=== PATIENT | male | born 1970 | race Two or more races ===

== ENCOUNTER 2024-03-22 13:18 | Emergency (ER) | payer BC ==
[2024-03-22 14:00] LABS: BASOPHILS ABSOLUTE AUTO 0.01 K/uL (0.00-0.20); BASOPHILS PERCENT AUTO 0.1 % (0.0-2.0); HEMATOCRIT 40.7 % (39.0-49.0); HEMOGLOBIN 14.2 g/dL (13.1-16.8); LYMPHOCYTES ABSOLUTE AUTO 1.16 K/uL (0.50-3.50); LYMPHOCYTES PERCENT AUTO 11.2 % (10.0-50.0); MEAN CORPUSCULAR HEMOGLOBIN 31.1 pg (28.2-33.3); MEAN CORPUSCULAR HGB CONC 34.9 g/dL (31.7-36.0); MEAN CORPUSCULAR VOLUME 89.1 fL (84.0-98.0); MONOCYTES ABSOLUTE AUTO 0.35 K/uL (0.00-1.00); MONOCYTES PERCENT AUTO 3.4 % (2.0-14.0); NEUTROPHILS ABSOLUTE AUTO 8.83 K/uL (1.40-7.00); NEUTROPHILS PERCENT AUTO 85.3 % (45.0-80.0); PLATELET COUNT,PLT 326 K/uL (150-350); RED BLOOD CELL COUNT 4.57 M/uL (4.33-5.41); RED CELL DISTRIBUTION WIDTH 13.2 % (11.2-14.1); WHITE BLOOD CELL COUNT,WBC 10.4 K/uL (4.0-10.2)
[2024-03-22] MEDS ORDERED: Naloxone 0.4 MG/ML SDV IVPUSH PRN (14:03)
[2024-03-22] MEDS: Sodium Chloride 0.9% 1,000 ML IV ONE (14:17)
[2024-03-22] MEDS: Ondansetron 4 MG/2 ML SDV IVPUSH ONE (14:18)
[2024-03-22] MEDS: fentaNYL 50 MCG/ML SDV IVPUSH ONE (14:22)
[2024-03-22 14:25] LABS: SEDIMENTATION RATE AUTO 6 mm/hr (0-20)
[2024-03-22 14:36] LABS: ALANINE AMINOTRANSFERASE,ALT 24 U/L (12-78); ALBUMIN 4.2 g/dL (3.4-5.0); ALKALINE PHOSPHATASE 73 IU/L (46-116); ANION GAP 10.5 meq/L (7-15); ASPARTATE AMNIOTRANSFERASE,AST 16 U/L (15-37); BILIRUBIN TOTAL 0.5 mg/dL (0.2-1.0); BLOOD UREA NITROGEN,BUN 14 mg/dL (7-18); CARBON DIOXIDE,CO2 26.5 mmol/L (21.0-32.0); CHLORIDE,CL 104 mmol/L (98-107); CREATININE 0.78 mg/dL (0.51-1.17); ESTIMATED GFR 108 mL/min (>=60); GLUCOSE RANDOM 111 mg/dL (70-99); MAGNESIUM 1.8 mg/dL (1.8-2.4); POTASSIUM,K 3.5 mmol/L (3.5-5.1); PROTEIN TOTAL,TP 7.7 g/dL (6.4-8.2); SODIUM,NA 141 mmol/L (136-145)
[2024-03-22] MEDS: levETIRAcetam 500 MG/5 ML SDV IVPUSH ONE (14:49)
== END 2024-03-22 15:38 ==
LOC: LL.ED 13:18
DX: S06.5X0A Traumatic subdural hemorrhage without loss of consciousness, initial encounter (principal); Z79.899 Other long term (current) drug therapy; V89.2XXA Person injured in unspecified motor-vehicle accident, traffic, initial encounter
CPT/HCPCS: 36415; 70450; 72125; 80053; 83605; 83735; 85025; 85379; 85652; 86140; 93005; 93010; 96374; 96375; 99284; 99284-25; J1953; J2405; J3010; J7030